=== PATIENT | female | born 1985 | race Caucasian/White ===

== ENCOUNTER → 2016-11-14 | Outpatient (CLI) | payer OTHER ==
--- NOTE | 2016-11-14 12:14 | RAD ---
Indication thickening of the breast at 12:00. Possible pathology at the 6:00 position. Targeted ultrasound to the areas of concern in the right breast was performed. No prior imaging of the breasts is available. The patient is reportedly . The breasts are quite dense. At the 12:00 position of the breast approximately 4 centimeters from the nipple there is a hypoechoic 1.2 cm mass compatible with a cyst. At the 7:00 position of the breast 4 cm from the nipple there is a oval bilobed structure. The more distant mass measuring approximately 8 mm is compatible with a cyst. The more superficial mass immediately adjacent to the probable cyst has internal echoes and may represent a complicated cyst. A solid mass cannot be entirely excluded but is felt less likely. Neither of these masses at the 7:00 position have ominous an appearance on ultrasound. At the 8:00 position 6 centimeters from the nipple is a hypoechoic mass measuring approximately 4 mm likely reflecting a cyst. IMPRESSION: Probable multiple cysts. A solid mass at the 7:00 position of the breast is not entirely excluded. Follow-up ultrasound imaging in 4 months advised
== END | disposition home or self-care (01) ==
LOC: US 10:56
PROVIDERS: ATTEND Nurse Practitioner Family
DX: N63 Unspecified lump in breast (principal)
CPT/HCPCS: 76641

== ENCOUNTER → 2017-04-14 | Outpatient (CLI) | payer OTHER ==
--- NOTE | 2017-04-14 15:00 | RAD ---
Indication: Follow-up right breast cyst. Correlation is made with prior exam from 11/14/2016. At the 12:00 location of the right breast 4 cm from the nipple there is a simple appearing cyst measuring 8 mm x 8 mm x 9 mm. This compares with 10 mm x 6 mm x 12 mm on prior. The previously noted cyst at the 8:00 location is no longer visualized. The bilobed cyst at the 7:00 location 4 cm from the nipple measures approximately 7 mm x 7 mm x 16 mm. It is uncertain if this is truly a bilobed cyst versus 2 adjacent cysts. The overall measurement has increased. No shadowing is identified. No other masses are seen. Impression: BI-RADS Category 3 Slight decrease in size of the cyst at the 12:00 location of the right breast. The cyst at 8:00 is no longer visualized. There is some increase in size of the bilobed cyst versus 2 adjacent cysts at the 7:00 location. Continued close follow-up with repeat right breast ultrasound in approximately 3 months is recommended to confirm stability.
== END | disposition home or self-care (01) ==
LOC: MAMMO 13:38
PROVIDERS: ATTEND Nurse Practitioner Family
DX: N60.01 Solitary cyst of right breast (principal)
CPT/HCPCS: 76641

== ENCOUNTER → 2018-01-14 | Outpatient (CLI) | payer OTHER ==
--- NOTE | 2018-01-14 14:54 | RAD ---
Right breast ultrasound, 01/14/2018: History: Follow-up abnormal ultrasound A targeted ultrasound exam was performed in the areas of previously noted sonographic concern. At the 12:00 location approximately 4.5 cm from the nipple there is a 8 mm simple appearing cyst. It is of similar size when compared to the 04/14/2017 exam. At the 7:00 location approximately 4 cm from the nipple there is a cluster of 2 simple appearing cysts as well as one adjacent hypoechoic nodule which may be a complicated cyst. This overall process measures 9 mm in greatest dimension, similar to on the oldest study from 11/14/2016. At the 8:00 location approximately 6 cm in the nipple there is a smooth oval hypoechoic nodule measuring 6 x 4 x 3 mm. There are faint low level internal echoes. The features are compatible with a complicated cyst. It may be slightly larger than on the 11/14/2016 study. IMPRESSION: Simple and probably complicated right breast cysts as described above. Further sonographic surveillance of the 7:00 and 8:00 findings in 6 months is suggested. BI-RADS 3-probably benign findings
== END | disposition home or self-care (01) ==
LOC: US 12:34
DX: R92.8 Other abnormal and inconclusive findings on diagnostic imaging of breast (principal)
CPT/HCPCS: 76641